=== PATIENT | male | born 1990 | race Caucasian/White ===

== ENCOUNTER 2021-06-08 18:42 | Emergency (ER) | payer BC, SELFPAY ==
[2021-06-08] VITALS (8 sets, daily range): BP systolic 138; BP diastolic 80; PULSE 86–109; RESP 16–20; TEMP 36.7; O2SAT 94–98
[2021-06-08] MEDS: diphenhydrAMINE 50 MG/ML VIAL IVP (19:08)
[2021-06-08] MEDS: Lactated Ringers 500 ML IV (19:08)
[2021-06-08] MEDS: EPINEPHrine 0.3 MG KIT IM (19:08)
[2021-06-08] MEDS: methylPREDNISolone SUCC 125 MG VIAL IVP (19:09)
--- NOTE | 2021-06-08 20:40 | ED.GENADUL_ITS ---
Discharge Plan Disposition Patient Disposition: HOME Condition: Stable Discharge Details Clinical Impression: Bee sting-induced anaphylaxis Primary Care Provider: None,None ED Provider: Chacho Rodriguez Meds and New Rx's Prescriptions: New epinephrine [EpiPen 2-Buster] 0.3 mg/0.3 mL auto-injector 0.3 mg IM ONCE PRN (Reason: anaphylaxis) Qty: 2 RF: 0 prednisone 20 mg tablet 40 mg PO DAILY Qty: 8 RF: 0 No Action oxycodone-acetaminophen 1 TAB tablet 1 - 2 tab PO Q4H PRNQty: 60 RF: 0 Discharge Instructions Instructions: Insect Bite or Sting (ED), Anaphylaxis (ED) Additional Instructions: Please take Benadryl 25 mg every 8 hours for the next few days. Take prednisone as prescribed. Your next dose is tomorrow. You are prescribed an EpiPen to be used for severe anaphylaxis in the future. 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 Return to the emergency department immediately for any worsening or new concerning symptoms. Discharge Data Discharge Date/Time-TO BE ENTERED AT DEPARTURE: 06/08/21 21:50 Medical Decision Making <Keith Najera MD - Last Filed: 06/14/21 23:46> 2041 -- 31-year-old male here with anaphylaxis to bee sting. Patient has tachycardia, facial swelling, diffuse urticarial rash with hives. Patient was given epinephrine 0.3 mg IM, Benadryl 25 mg IV, and Solu-Medrol 125 mg IV. He was given IV fluid. Plan to observe to allow epinephrine to be metabolized and ensure no recurrence. <Chacho Rodriguez MD - Last Filed: 06/08/21 21:46> Patient signed out to me for reassessment after treatment with epinephrine and steroids status post wasp sting. It has now been 3 hours with no recurrence of symptoms and patient feels fine. He does not wish to wait another hour and wishes to be discharged now. He is staying in [facility]. Blood prescriptions for epinephrine and prednisone has been sent to pharmacy he does not have any available tonight. We discussed reasons to return to ED or call 911 if any recurrent symptoms tonight. HPI <Keith Najera MD - Last Filed: 06/14/21 23:46> General Date/Time Provider Initiated Documentation: 06/08/21 18:51 . Related Data Home Medications Medication Instructions Recorded Confirmed oxycodone-acetaminophen 1 - 2 tab PO Q4H PRN #60 tab 05/09/13 epinephrine [EpiPen 2-Buster] 0.3 mg IM ONCE PRN #2 ea 06/08/21 prednisone 40 mg PO DAILY #8 tab 06/08/21 Previous Rx's Medication Instructions Recorded oxycodone-acetaminophen 1 - 2 tab PO Q4H PRN #60 tab 05/09/13 epinephrine [EpiPen 2-Buster] 0.3 mg IM ONCE PRN #2 ea 06/08/21 prednisone 40 mg PO DAILY #8 tab 06/08/21 Allergies Allergy/AdvReac Type Severity Reaction Status Date / Time amoxicillin [Amoxicillin] Allergy Mild Unverified 05/09/13 08:26 General Stated Complaint: Allergic JUAN RAMON: 3 PFSH <Keith Najera MD - Last Filed: 06/14/21 23:46> Medical History (Updated 06/08/21 @ 20:43 by Keith Najera MD) Heart murmur Social History Smoking/Tobacco Use Status: Current every day Smoking risk assessment performed?: Yes Alcohol Intake: current Drug use: Never Substance use type: does not use Do you feel safe at home: Yes Do you feel safe in your relationship?: Yes Exam <Keith Najera MD - Last Filed: 06/14/21 23:46> Const General: cooperative and no acute distress [facility] Head: normocephalic and atraumatic Face and sinus: other Mouth: moist mucous membranes and other (lip swelling) Throat: posterior oropharynx normal Eyes Conjunctivae: normal conjunctivae Sclera: normal sclerae Neck Neck: trachea midline and supple Resp Auscultation: clear to auscultation bilaterally, no rales, no rhonchi and no wheezes Cardio Rate: tachycardic Rhythm: regular rhythm GI Palpation: soft, not firm, no guarding, no masses, not rigid and nontender Skin Rashes: rashes noted (Urticarial rash torso, upper extremities, neck) Neuro General: patient alert, patient awake, patient oriented x3 and tone normal Extrem General: no edema Psych Appearance: grossly normal Mental Status: mental status grossly normal Course <Keith aNjera MD - Last Filed: 06/14/21 23:46> Vital Signs Vital signs: Vital Signs Temperature 36.7 C 06/08/21 18:48 Pulse 109 H 06/08/21 18:48 Respiratory Rate 18 06/08/21 18:48 Blood Pressure 138/80 06/08/21 18:48 Pulse Oximetry 98 06/08/21 18:48 Temperature 36.7 C 06/08/21 18:48 Temperature Source Skin 06/08/21 18:48 Pulse 109 H 06/08/21 18:48 Respiratory Rate 18 06/08/21 18:48 Respiratory Effort Non-Labored 06/08/21 19:10 Respiratory Pattern Normal 06/08/21 19:10 Blood Pressure 138/80 06/08/21 18:48 Blood Pressure Position Sitting 06/08/21 18:48 Pulse Oximetry 98 06/08/21 18:48 Oxygen Delivery Method Room Air 06/08/21 18:48 Oxygen Flow Rate 0 06/08/21 18:48 Pain Level 3 06/08/21 18:48 Critical Care Time <Keith Najera MD - Last Filed: 06/14/21 23:46> Critical Care Time Critical Care Time: Yes Total Critical Care Time: 40 Attestation: I spent greater than 40 minutes addressing this patient's immediate life threats. Please see MDM section of note. This time was spent engaged in work directly related to the patient's care, exclusive of separate procedures, and failure to initiate these interventions would have likely resulted in clinically significant or life threatening deterioration in the patient's condition. Sign Out <Keith Najera MD - Last Filed: 06/14/21 23:46> Sign Out Data: Sign Out Comment: Reassess patient post epinephrine for anaphylaxis. Last updated by Keith Najera MD at 06/08/21 20:54
--- NOTE | 2021-06-08 22:01 | NUR.NOTE ---
pt wants to go home he states that he feels perfectly fine Nursing Note:
== END 2021-06-08 21:50 | disposition home or self-care (01) ==
PROVIDERS: Emergency Provider Emergency Medicine
DX: T63.451A Toxic effect of venom of hornets, accidental (unintentional), initial encounter (principal); T78.2XXA Anaphylactic shock, unspecified, initial encounter
CPT/HCPCS: 36415; 96361; 96372; 96374; 96375; 99291; J0171; J1200; J2930

== ENCOUNTER 2023-01-15 09:13 | Emergency (ER) | payer BC, SELFPAY ==
--- NOTE | 2023-01-15 09:18 | ED.GENADUL_ITS ---
Discharge Plan Disposition Patient Disposition: Home Discharge Details Clinical Impression: Tetanus toxoid vaccination administered at current visit, Laceration of left hand Primary Care Provider: None,None ED Provider: Danny Lopez Home Meds and New Rx's Prescriptions: No Action epinephrine [EpiPen 2-Buster] 0.3 mg/0.3 mL auto-injector 0.3 mg IM ONCE PRN (Reason: anaphylaxis) Qty: 2 0RF Rx Instructions: as a single dose Discharge Instructions Instructions: Laceration (ED) Additional Instructions: You were seen in the emergency department for your laceration. You had stitches placed that need to come out in 7 to 10 days. As we discussed, if you develop fevers chills or any streaking signs of infection please return to the emergency department. As needed please take acetaminophen and ibuprofen for your pain. Medical Decision Making Medical Records Medical records narrative: This is a quite well-appearing normothermic and not tachycardic right-handed male with left nondominant fairly superficial left hand laceration which would b enefit from primary closure following copious irrigation. Will update tetanus status. Will advise with return indications including any streaking signs of infection or any fevers. No tendon weakness no any deeper component that would suggest benefit from orthopedic consultation or splinting. I offered the patient oral analgesia using acetaminophen and ibuprofen which he declined. Please see procedure note concerning 2 simple interrupted Prolene sutures that were placed. Advised patient to return to the ED or urgent care or primary care to have his sutures removed in 7 to 10 days. HPI General Date/Time Provider Initiated Documentation: 01/15/23 09:18 . HPI Narrative: This is a previously healthy 32-year-old [id number] male in the emergency department a left hand laceration. Patient works for the [employer] and was on a job site where he was using a [employer] knife to cut zip ties. He inadvertently cut the webspace between his thumb and left index fingers. He controlled the bleeding with pressure. He does not know when his last tetanus was. He denies any other injuries. Related Data Home Medications Medication Instructions Recorded Confirmed epinephrine 0.3 mg/0.3 mL 0.3 mg (0.3 mL) IM ONCE PRN 06/08/21 01/15/23 injection, auto-injector (EpiPen anaphylaxis #2 ea 2-Buster) Previous Rx's Medication Instructions Recorded epinephrine 0.3 mg/0.3 mL 0.3 mg (0.3 mL) IM ONCE PRN 06/08/21 injection, auto-injector (EpiPen anaphylaxis #2 ea 2-Buster) Allergies Allergy/AdvReac Type Severity Reaction Status Date / Time insect venom Allergy Severe throat Unverified 01/15/23 09:25 swelling/tighness amoxicillin [Amoxicillin] Allergy Mild Unverified 01/15/23 09:24 General JUAN RAMON: 3 PFSH All Active Problems (Updated 01/15/23 @ 09:32 by Danny Lopez MD) Bee sting-induced anaphylaxis (Acute) Tetanus toxoid vaccination administered at current visit (Acute) Laceration of left hand (Acute) Medical History (Updated 01/15/23 @ 09:32 by Danny Lopez MD) Heart murmur Social History Smoking/Tobacco Use Status: Current every day Smoking risk assessment performed?: Yes Alcohol Intake: current Drug use: Never Substance use type: does not use Do you feel safe at home: Yes Do you feel safe in your relationship?: Yes Exam Narrative Exam Narrative: General: Well-appearing in no acute distress speaking in complete sentences. Head: Normocephalic, atraumatic Ear, nose, mouth, throat: Grossly normal inspection. Normal voice, handling secretions normally. Neck: Trachea midline. Cardiovascular: Well-perfused distal extremities. Respiratory: Nonlabored respiration. Gastrointestinal: Nondistended abdomen. Musculoskeletal: In the dorsal webspace on the left hand between the thumb and the index finger there is an approximately 1.5 cm laceration that violates subcutaneous tissue. Full range of motion intact in the left thumb. Flexion and extension intact in the left index finger across the MCP,, and DIP joints. Left hand warm and well-perfused with a 2+ left radial pulse. Skin: Normal for age and race, grossly normal temperature and turgor. No acute rash. Neurologic: Alert and appropriate, no apparent acute deficits. Psychiatric: Mood and manner are appropriate. Grooming and personal hygiene are appropriate. Procedures Laceration Laceration 1: Site: hand Size (cm): 1.5 Description: linear Local Anesthetic: Lidocaine 1% and other anesthetic (LEt) Skin layer closed with: other (5-0 Prolene) Number of sutures: 2 Technique: simple, interrupted
[2023-01-15 09:19] VITALS: BP 150/92; PULSE 70; RESP 14; TEMP 37; O2SAT 100
[2023-01-15] MEDS: Lidocaine/Epinephri/Tetracaine Topical Gel 3 ML TP (09:32)
[2023-01-15] MEDS: Lidocaine 1% Multi-Dose 50 ML VIAL IJ (09:43)
== END 2023-01-15 10:11 | disposition home or self-care (01) ==
PROVIDERS: Emergency Provider Emergency Medicine
DX: S61.412A Laceration without foreign body of left hand, initial encounter (principal); Z23 Encounter for immunization; Y99.0 Civilian activity done for income or pay; W26.0XXA Contact with knife, initial encounter
CPT/HCPCS: 12001; 99282